=== PATIENT | female | born 1955 | race Caucasian/White ===

== ENCOUNTER 2023-10-02 23:01 | Emergency (ER) | payer MEDICARE ==
[2023-10-02 23:56] LABS: BASOPHILS ABSOLUTE AUTO 0.07 K/uL (0.00-0.10); BASOPHILS PERCENT AUTO 0.6 % (0.1-1.3); EOSINOPHILS PERCENT AUTO 4.3 % (0.0-5.4); HEMATOCRIT 37.4 % (34.3-46.0); HEMOGLOBIN 12.6 g/dL (11.2-15.5); IMMATURE GRAN ABSOLUTE AUTO 0.16 K/uL (0.00-0.23); IMMATURE GRAN PERCENT AUTO 1.4 % (0.0-0.7); MEAN CORPUSCULAR HEMOGLOBIN 27.9 pg (31.6-35.5); MEAN CORPUSCULAR HGB CONC 33.7 g/dL (31.6-35.5); MEAN CORPUSCULAR VOLUME 82.9 fL (81.4-99.0); MONOCYTES PERCENT AUTO 8.6 % (3.3-12.6); NEUTROPHILS ABSOLUTE AUTO 6.43 K/uL (1.0-7.6); NEUTROPHILS PERCENT AUTO 55.1 % (40.0-78.1); PLATELET COUNT,PLT 292 K/uL (130-375); RED BLOOD CELL COUNT 4.51 M/uL (3.77-5.24); WHITE BLOOD CELL COUNT,WBC 11.7 K/uL (3.2-11.0)
[2023-10-03 00:01] LABS: CALCIUM 8.6 mg/dL (8.5-10.1); CREATININE 1.1 mg/dL (0.6-1.0); EST CRCL DRUG DOSING (CG) 39.93 mL/min; POTASSIUM,K 3.4 mmol/L (3.6-5.2)
[2023-10-03 00:13] LABS: ANION GAP 10.4 mmol/L (5.0-14.0)
== END 2023-10-03 00:41 | disposition home or self-care (01) ==
LOC: JP.ED 23:01
DX: S80.11XA Contusion of right lower leg, initial encounter (principal); E11.9 Type 2 diabetes mellitus without complications; Z88.0 Allergy status to penicillin; Z79.899 Other long term (current) drug therapy
CPT/HCPCS: 36415; 73590-RT; 80048; 85025; 99283

== ENCOUNTER 2024-01-11 13:26 | Emergency (ER) | payer MEDICARE ==
[2024-01-11 14:18] LABS: CORONAVIRUS COVID-19 NAA NEGATIVE (NEGATIVE); INFLUENZA A NAA POSITIVE (NEGATIVE); INFLUENZA B NAA NEGATIVE (NEGATIVE); RESPIRATORY SYNCYTIAL VIR NAA NEGATIVE (NEGATIVE)
[2024-01-11] MEDS: Ketorolac 30 MG/ML SDV IM ONE (14:44)
== END 2024-01-11 14:58 | disposition home or self-care (01) ==
LOC: JP.ED 13:26
DX: J10.1 Influenza due to other identified influenza virus with other respiratory manifestations (principal); E11.9 Type 2 diabetes mellitus without complications; Z88.0 Allergy status to penicillin; Z79.899 Other long term (current) drug therapy; Z79.82 Long term (current) use of aspirin
CPT/HCPCS: 0241U; 96372; 99283; J1885

== ENCOUNTER 2025-04-02 09:23 | Day surgery (SDC) | payer MEDICARE ==
[2025-04-02] MEDS ORDERED: Propofol 200 MG/20 ML SDV ONE ×3 (09:36→11:13)
[2025-04-02] MEDS ORDERED: fentaNYL 50 MCG/ML SDV ONE (09:36)
[2025-04-02] MEDS: Lactated Ringers 1,000 ML IV SCH (10:22)
== END 2025-04-02 12:41 | disposition home or self-care (01) ==
LOC: JP.SDS 09:23
PROVIDERS: ATTEND Surgery
DX: Z12.11 Encounter for screening for malignant neoplasm of colon (principal); K21.9 Gastro-esophageal reflux disease without esophagitis; I12.9 Hypertensive chronic kidney disease with stage 1 through stage 4 chronic kidney disease, or unspecified chronic kidney disease; E11.22 Type 2 diabetes mellitus with diabetic chronic kidney disease; N18.9 Chronic kidney disease, unspecified; Z88.0 Allergy status to penicillin; Z86.0100 Personal history of colon polyps, unspecified
CPT/HCPCS: G0121; J2704; J3010; J7120